=== PATIENT | male | born 1965 | race Caucasian/White ===

== ENCOUNTER 2020-09-21 04:07 | Emergency (ER) | payer BC ==
[~2020-09-21 04:07] MED LIST: ALTACE10 MG PO; ASPIR 8181 MG PO; ASPIR-LOW81 MG PO; BACTRIM DS TAB1 EACH PO; CELEXA40 MG PO; CPAP; KEFLEX CAP 500500 MG PO; LIPITOR TAB 2020 MG PO; LODINE CAP 300300 MG PO; LORCET PLUS 7.1 EACH PO; PRILOSEC OTC20 MG PO
[2020-09-21] MEDS ORDERED: VENTOLIN HFA 66.7 GM INH (04:30)
== END 2020-09-21 04:40 | disposition home or self-care (01) ==
LOC: ER1 04:07
DX: R06.00 Dyspnea, unspecified (principal); R05 Cough; R09.89 Other specified symptoms and signs involving the circulatory and respiratory systems; I10 Essential (primary) hypertension
CPT/HCPCS: 99284

== ENCOUNTER 2020-12-16 02:36 | Emergency (ER) | payer BC ==
[~2020-12-16 02:36] MED LIST changes: +VENTOLIN HFA 66.7 GM INH
[2020-12-16 03:20] LABS: HEMOGLOBIN 14.5 gm/dl (14.0-17.5); RED BLOOD COUNT 4.94 M/UL (4.20-5.50); WHITE BLOOD COUNT 12.3 K/UL (4.5-11.0)
[2020-12-16 03:51] LABS: BUN/CREATININE RATIO 17 (0-10)
== END 2020-12-16 05:30 | disposition home or self-care (01) ==
LOC: ER1 02:36
PROVIDERS: Physician Assistant
DX: K76.0 Fatty (change of) liver, not elsewhere classified (principal); K59.00 Constipation, unspecified; K40.20 Bilateral inguinal hernia, without obstruction or gangrene, not specified as recurrent; R10.11 Right upper quadrant pain; K21.9 Gastro-esophageal reflux disease without esophagitis; I10 Essential (primary) hypertension; R11.0 Nausea; R19.7 Diarrhea, unspecified
CPT/HCPCS: 80053; 81001; 85025; 93005; 96374; 96375; 99284; J2270; J2405; Q9967

== ENCOUNTER 2021-02-20 08:34 | Emergency (ER) | payer BC ==
[2021-02-20] MEDS ORDERED: CYCLOBENZAPRINE10 MG PO (10:38)
== END 2021-02-20 11:30 | disposition home or self-care (01) ==
LOC: ER1 08:34
DX: M25.511 Pain in right shoulder (principal); I10 Essential (primary) hypertension; F41.9 Anxiety disorder, unspecified
CPT/HCPCS: 73030; 99283; J0696; J1100

== ENCOUNTER → 2021-03-11 | Outpatient (CLI) | payer BC ==
[~2021-03-11] MED LIST changes: +CYCLOBENZAPRINE10 MG PO
== END ==
LOC: KOH-I 08:39
DX: S46.011D Strain of muscle(s) and tendon(s) of the rotator cuff of right shoulder, subsequent encounter (principal); M19.011 Primary osteoarthritis, right shoulder
CPT/HCPCS: 73221

== ENCOUNTER → 2021-04-18 | Outpatient (CLI) | payer BC, OTHER ==
[~2021-04-18] MED LIST changes: +ATENOLOL25 MG PO; +CETIRIZINE HCL10 MG PO; +IBU800 MG PO; +LOSARTAN POTASS50 MG PO; +MULTI VIT PO; +NORVASC5 MG PO; +PEPCID40 MG PO; +ROBAXIN 750 MG750 MG PO; +VITAMIN C PO; +VITAMIN D3 PO; +WELLBUTRIN XL300 MG PO; +[UNRECOGNIZED DRUG - OTHER] PO
[2021-04-18 12:05] LABS: HEMOGLOBIN 14.6 gm/dl (14.0-17.5); RED BLOOD COUNT 5.11 M/UL (4.20-5.50); WHITE BLOOD COUNT 7.7 K/UL (4.5-11.0)
[2021-04-18 12:27] LABS: BUN/CREATININE RATIO 13 (0-10)
== END ==
LOC: OPSV2 11:10 → EDSTATUS 11:30 → OPSV2 11:30
PROVIDERS: Orthopaedic Surgery
DX: Z01.818 Encounter for other preprocedural examination (principal); M75.101 Unspecified rotator cuff tear or rupture of right shoulder, not specified as traumatic
CPT/HCPCS: 71046; 80048; 83036; 85027; 93005

== ENCOUNTER → 2021-05-02 | Day surgery (SDC) | payer BC, OTHER ==
[~2021-05-02] MED LIST changes: +ENDOCET 7.5-321 EACH PO; +ZOFRAN 4 MG TAB4 MG PO
== END | disposition home or self-care (01) ==
LOC: OR 06:48
DX: M12.811 Other specific arthropathies, not elsewhere classified, right shoulder (principal); M75.121 Complete rotator cuff tear or rupture of right shoulder, not specified as traumatic; G89.18 Other acute postprocedural pain; I10 Essential (primary) hypertension; E78.5 Hyperlipidemia, unspecified; K21.9 Gastro-esophageal reflux disease without esophagitis; Z87.891 Personal history of nicotine dependence; Z88.1 Allergy status to other antibiotic agents; Z79.82 Long term (current) use of aspirin; Z79.899 Other long term (current) drug therapy; Z20.822 Contact with and (suspected) exposure to COVID-19
CPT/HCPCS: 73020; 86850; 86900; 86901; 94664; 97161; 97166; 97530; 97535; C1713; C1776; J0690; J1100; J2001; J2250; J2405; J2704; J2710; J2795; J3010; J3370; J7120; P9045

== ENCOUNTER 2021-07-05 09:46 | Emergency (ER) | payer OTHER ==
[2021-07-05 10:46] LABS: HEMOGLOBIN 13.6 gm/dl (14.0-17.5); RED BLOOD COUNT 4.85 M/UL (4.20-5.50); WHITE BLOOD COUNT 7.6 K/UL (4.5-11.0)
[2021-07-05 12:38] LABS: BUN/CREATININE RATIO 19 (0-10)
== END 2021-07-05 14:50 | disposition home or self-care (01) ==
LOC: ER1 09:46
PROVIDERS: Emergency Medicine
DX: R06.02 Shortness of breath (principal); E66.9 Obesity, unspecified; R06.2 Wheezing
CPT/HCPCS: 71045; 80053; 82550; 82553; 83880; 84484; 85025; 93005; 94664; 96374; 99285; J1100

== ENCOUNTER → 2021-07-29 | Outpatient (CLI) | payer OTHER | LOC: HEART 5 16:17 | DX: R06.02 Shortness of breath (principal) | CPT/HCPCS: 94060; 94729; 95012 ==

== ENCOUNTER → 2021-08-26 | Outpatient (CLI) | payer OTHER | LOC: EMI 08-23 10:15 | DX: M75.102 Unspecified rotator cuff tear or rupture of left shoulder, not specified as traumatic (principal) | CPT/HCPCS: 73221 ==

== ENCOUNTER 2021-09-05 01:52 | Emergency (ER) | payer OTHER | END 2021-09-05 05:15 | disposition home or self-care (01) | LOC: ER1 01:52 | DX: R13.10 Dysphagia, unspecified (principal); R09.89 Other specified symptoms and signs involving the circulatory and respiratory systems; J45.909 Unspecified asthma, uncomplicated; Z20.822 Contact with and (suspected) exposure to COVID-19 | CPT/HCPCS: 0240U; 70360; 87081; 87880; 99283 ==

== ENCOUNTER → 2021-09-30 | Outpatient (CLI) | payer OTHER | LOC: RAD 09:47 | DX: R13.10 Dysphagia, unspecified (principal) | CPT/HCPCS: 74230; 92611-GN ==

== ENCOUNTER 2021-10-11 23:32 | Observation (INO) | payer OTHER ==
[~2021-10-11] VITALS: Ht 175.3 cm; Wt 131.5 kg
[~2021-10-11 23:32] MED LIST changes: -BREO ELLIPTA 21 EACH INH; -CELECOXIB200 MG PO; -GABAPENTIN600 MG PO; -ICAPS AREDS2 S1 EACH PO; -PROZAC40 MG PO
[2021-10-12 00:47] LABS: HEMOGLOBIN 14.9 gm/dl (14.0-17.5); RED BLOOD COUNT 5.22 M/UL (4.20-5.50); WHITE BLOOD COUNT 10.6 K/UL (4.5-11.0)
[2021-10-12 01:05] LABS: BUN/CREATININE RATIO 20 (0-10)
[2021-10-12] MEDS ORDERED: GABAPENTIN600 MG PO (05:31)
[2021-10-12] MEDS ORDERED: PROZAC40 MG PO (05:31)
[2021-10-12] MEDS ORDERED: ROBAXIN 750 MG750 MG PO (05:32)
[2021-10-12] MEDS ORDERED: ICAPS AREDS2 S1 EACH PO (09:43)
[2021-10-12] MEDS ORDERED: CELECOXIB200 MG PO (09:47)
[2021-10-12] MEDS ORDERED: CETIRIZINE HCL10 MG PO (09:49)
[2021-10-12] MEDS ORDERED: BREO ELLIPTA 21 EACH INH (10:17)
[2021-10-13 06:46] LABS: BUN/CREATININE RATIO 15 (0-10)
[2021-10-14 06:59] LABS: BUN/CREATININE RATIO 15 (0-10)
== END 2021-10-14 13:42 | disposition home or self-care (01) ==
LOC: ER1 23:32 → MED SURG 4 10-12 04:25 → CDU 10-12 04:25 → MED SURG 4 10-12 05:39
PROVIDERS: Emergency Medicine; Internal Medicine; Physician Assistant; ADMIT Internal Medicine
DX: R07.89 Other chest pain (principal); I25.10 Atherosclerotic heart disease of native coronary artery without angina pectoris; M19.90 Unspecified osteoarthritis, unspecified site; I10 Essential (primary) hypertension; F41.8 Other specified anxiety disorders; G47.33 Obstructive sleep apnea (adult) (pediatric); J45.909 Unspecified asthma, uncomplicated; R06.02 Shortness of breath; E66.01 Morbid (severe) obesity due to excess calories; Z98.61 Coronary angioplasty status; Z87.891 Personal history of nicotine dependence
CPT/HCPCS: ECHO; 36415; 71045; 78452; 80048; 80061; 82550; 82553; 84484; 85025; 85379; 93005; 93017; 93306; 94640; 94664; 94760; 99152; A9502; C1769; C1887; C1894; G0378; J1644; J1650; J2250; J2785; J3010; J7040; Q9967

== ENCOUNTER → 2021-10-11 | Outpatient (CLI) | payer OTHER ==
[~2021-10-11] MED LIST changes: -ASPIR-LOW81 MG PO; +ASPIRIN EC81 MG PO; +BREO ELLIPTA 21 EACH INH; +CELECOXIB200 MG PO; +GABAPENTIN600 MG PO; +ICAPS AREDS2 S1 EACH PO; -MULTI VIT PO; +ONE-A-DAY MEN'1 EACH PO; +PROZAC40 MG PO
== END ==
LOC: KOH-I 09:53
DX: Z01.818 Encounter for other preprocedural examination (principal); M50.00 Cervical disc disorder with myelopathy, unspecified cervical region; M50.10 Cervical disc disorder with radiculopathy, unspecified cervical region
CPT/HCPCS: 72125

== ENCOUNTER → 2021-11-14 | Outpatient (CLI) | payer OTHER ==
[~2021-11-14] MED LIST changes: +BREO ELLIPTA 21 EACH INH; +CELECOXIB200 MG PO; +FLUTICASONE SPRAY; +GABAPENTIN600 MG PO; +ICAPS AREDS2 S1 EACH PO; +MECLIZINE HCL25 MG PO; +PREDNISOLONE ACE5 ML EYELF; +PROAIR HFA8.5 GM INH; +PROZAC40 MG PO; +ULTRAM50 MG PO
[2021-11-14 13:31] LABS: RED BLOOD COUNT 4.92 M/UL (4.20-5.50); WHITE BLOOD COUNT 8.8 K/UL (4.5-11.0)
[2021-11-14 13:44] LABS: BUN/CREATININE RATIO 14 (0-10)
== END ==
LOC: OPSV2 12:30 → EDSTATUS 12:30 → OPSV2 12:33
PROVIDERS: Orthopaedic Surgery
DX: Z01.812 Encounter for preprocedural laboratory examination (principal); G95.9 Disease of spinal cord, unspecified; M54.12 Radiculopathy, cervical region
CPT/HCPCS: 36415; 80048; 81001; 83036; 85025; 85610; 85730; 87081